=== PATIENT | female | born 1960 | race Caucasian/White ===

== ENCOUNTER 2018-12-13 00:11 | Emergency (ER) | payer BC ==
[2018-12-13 00:18] VITALS: RESP 20; TEMP 99.2
[2018-12-13] MEDS ORDERED: HYDROmorphone 1 MG/ML 1 ML SYRINGE IVP STA (00:55)
--- NOTE | 2018-12-13 01:54 | XR ---
EXAM: XR Right Foot Complete, 3 or More Views CLINICAL HISTORY: ITS.REASON XR Reason: Pain TECHNIQUE: Frontal, lateral and oblique views of the right foot. COMPARISON: No relevant prior studies available. FINDINGS: Bones/joints: Fibular fracture, better characterized on dedicated ankle radiographs. No evidence of acute foot fracture on this markedly limited single view exam. No dislocation. Soft tissues: No radiopaque foreign body. Soft tissue swelling along the ankle joint. IMPRESSION: 1. Fibular fracture, better characterized on dedicated ankle radiographs. 2. No evidence of acute foot fracture on this markedly limited single view exam.
--- NOTE | 2018-12-13 03:08 | XR ---
EXAM: XR Right Ankle Complete, 3 or More Views CLINICAL HISTORY: ITS.REASON XR Reason: Pain TECHNIQUE: Frontal, lateral and oblique views of the right ankle. COMPARISON: No relevant prior studies available. FINDINGS: Bones/joints: Mildly displaced acute fracture of the lateral malleolus. Widening of the medial ankle mortise up to 6 mm concerning for medial collateral ligament injury. Plantar calcaneal spur. Soft tissues: Soft tissue swelling along the bilateral ankle joint. IMPRESSION: 1. Mildly displaced acute fracture of the lateral malleolus. 2. Widening of the medial ankle mortise up to 6 mm concerning for medial collateral ligament injury.
[2018-12-13] MEDS ORDERED: KETOROLAC 30 MG/ML 1 ML VIAL IVP STA (03:27)
[2018-12-13] MEDS ORDERED: HYDROmorphone 0.5 MG/0.5 ML SYRINGE IVP STA (03:27)
[2018-12-13 03:42] VITALS: BP 116/62; PULSE 75
--- NOTE | 2018-12-13 03:50 | ED ---
Lower Extremity Injury HPI - General Chief Complaint: Extremity Injury, Lower Stated Complaint: Fall R Ankle Injury Time Seen by Provider: 12/13/18 00:24 Source: patient Mode of arrival: EMS Limitations: no limitations - History of Present Illness Initial Comments: 58 year-old female patient presents to the emergency department today for evaluation of right ankle pain after a slip and fall accident. Patient states that she slipped and fell down the steps of her porch. States that she had significant and instant pain to the right ankle. Patient denies hitting her head or losing consciousness during the fall. Patient did have to call ambulance to pick her up she is unable to ambulate. Patient is also reporting right hip pain. She denies any neck or back pain with this. Denies any current headache, blurred vision, double vision, nausea, or vomiting. Denies any dizziness. Denies any previous injury to the ankle. Patient denies any chest pain, shortness of breath, abdominal pain, or difficulties with bowel movements or urination. - Related Data Previous Rx's Medication Instructions Recorded Hydrocodone/Acetaminophen [[place] 1 tab PO Q4HR PRN 3 Days #18 tab 12/13/18 5-325] Ibuprofen [Motrin] 600 mg PO Q8HR PRN #30 tab 12/13/18 Allergies Allergy/AdvReac Type Severity Reaction Status Date / Time No Known Allergies Allergy Verified 04/06/14 21:50 Review of Systems ROS Statement: Those systems with pertinent positive or pertinent negative responses have been documented in the HPI. ROS Other: All systems not noted in ROS Statement are negative. Past Medical History Past Medical History: No Reported History Additional Past Medical History / Comment(s): shingles History of Any Multi-Drug Resistant Organisms: None Reported Past Surgical History: Section Past Psychological History: Anxiety, Depression Smoking Status: Former smoker Past Alcohol Use History: Occasional Past Drug Use History: None Reported General Exam Limitations: no limitations General appearance: alert, in no apparent distress, other (Physical well- developed, well-nourished adult female patient in mild distress related to pain. Vital signs upon presentation are temperature 99.2F, pulse 79, respirations 20, blood pressure 134/72, pulse ox 98% on room air.) Eye exam: Present: normal appearance, PERRL, EOMI. Absent: scleral icterus, conjunctival injection, periorbital swelling ENT exam: Present: normal exam, normal oropharynx, mucous membranes moist Respiratory exam: Present: normal lung sounds bilaterally. Absent: respiratory distress, wheezes, rales, rhonchi, stridor Cardiovascular Exam: Present: regular rate, normal rhythm, normal heart sounds. Absent: systolic murmur, diastolic murmur, rubs, gallop, clicks Extremities exam: Present: tenderness (Tenderness over the medial lateral malleolus), normal capillary refill, other (Patient's significant soft tissue swelling surrounding the right ankle. Skin is pink, warm, dry. Cap refills less than 3 seconds. Pedal and posttibial pulses 2+ and equal bilaterally.). Absent: normal inspection, full ROM (Decreased range of motion to the right ankle), pedal edema, joint swelling, calf tenderness Neurological exam: Present: alert, oriented X3, CN II-XII intact Psychiatric exam: Present: normal affect, normal mood Skin exam: Present: warm, dry, intact, normal color. Absent: rash Course Vital Signs 12/13/18 12/13/18 00:13 03:41 Temperature 99.2 F Pulse Rate 79 75 Respiratory 20 20 Rate Blood Pressure 134/72 116/62 O2 Sat by Pulse 98 93 L Oximetry Medical Decision Making - Medical Decision Making 58 year-old female patient presented to the emergency department today for evaluation of right ankle and right hip pain after experiencing a slip and fall accident reports this evening. Physical examination did reveal swelling surrounding the right medial lateral malleolus. Patient neurovascular status was intact with good pulses, skin color, temperature, and cap refill. Patient had no knee or proximal tib-fib tenderness. X-rays of the right ankle did reveal a lateral malleolus fracture with widening of the ankle mortise up to 6 mm indicating possible medial collateral ligament injury. X-ray of the right hip and pelvis was negative for any evidence of acute osseous abnormalities. Did review x-rays with my attending physician Dr. Mullins, I did apply an ankle stirrup and posterior splint with generous padding around the ankle. Patient was given pain medication and prescriptions for home pain meds. Shows a given prescription for crutches which is instructed to follow-up with the authorization specialist for recheck as soon as possible. Return parameters were discussed in detail. She verbalizes understanding and agrees with this plan. - Radiology Data Radiology results: report reviewed, image reviewed Three-view x-ray of the right ankle are obtained. Report was reviewed in its entirety. Impression by Dr. Vasques shows mildly displaced acute fracture of the lateral malleolus. Widening of the medial ankle mortise up to 6 mm concerning for medial collateral ligament injury. 3 views of the right foot are obtained. Report is reviewed in its entirety. Impression by Dr. Vasques shows fibular fracture, better characterize and dedicated ankle radiographs. No evidence of acute fracture and is markedly limited single view exam. 3 views of the right hip and pelvis are obtained. Report was reviewed in its entirety. Impression by Dr. Vasques shows normal pelvis x-rays. Disposition Clinical Impression: Fracture of right ankle, lateral malleolus Disposition: HOME SELF-CARE Condition: Good Instructions (If sedation given, give patient instructions): Ankle Fracture (ED), Splint Care (ED) Additional Instructions: Keep leg elevated, keep ice over the splint. Remain nonweightbearing to the right ankle until follow-up with orthopedics. Follow-up with orthopedics for recheck as soon as possible. Return to the emergency department immediately for any new, worsening, or concerning symptoms. Prescriptions: Ibuprofen [Motrin] 600 mg PO Q8HR PRN #30 tab PRN Reason: Pain Hydrocodone/Acetaminophen [[place] 5-325] 1 tab PO Q4HR PRN 3 Days #18 tab PRN Reason: Pain Is patient prescribed a controlled substance at d/c from ED?: Yes When asked, does pt state using other controlled substances?: No If prescribed controlled substance>3 days was MAPS reviewed?: Prescribed <3 Days If opioid is for acute pain is fill amount 7 days or less?: Yes If Rx opioid, was Start Talking consent form obtained?: Yes Referrals: Antonio Dinero MD [STAFF PHYSICIAN] - 1-2 days Time of Disposition: 04:36
--- NOTE | 2018-12-13 04:31 | XR ---
EXAM: XR Pelvis Complete, 3 or More Views CLINICAL HISTORY: ITS.REASON XR Reason: Pain TECHNIQUE: Frontal and lateral or oblique views of the pelvis. COMPARISON: No relevant prior studies available. FINDINGS: Bones/joints: Unremarkable. No acute fracture. No dislocation. Soft tissues: Unremarkable. IMPRESSION: Normal pelvis x-rays.
[2018-12-13] MEDS ORDERED: ACET/COD 300 MG/30 MG STARTER PACK 6 TAB BTL PO STA (04:33)
[2018-12-13] MEDS ORDERED: IBUPROFEN 600 MG STARTER PACK 4 TAB BTL PO STA (04:34)
== END 2018-12-13 05:24 | disposition home or self-care (01) ==
LOC: EC 00:11
DX: S82.61XA Displaced fracture of lateral malleolus of right fibula, initial encounter for closed fracture (principal); M25.551 Pain in right hip; Z87.891 Personal history of nicotine dependence; W10.9XXA Fall (on) (from) unspecified stairs and steps, initial encounter; Y93.89 Activity, other specified; Y92.008 Other place in unspecified non-institutional (private) residence as the place of occurrence of the external cause
CPT/HCPCS: 73502; 73610; 73630; 99284; 29515; 96374; 96375; 96376; J1885; J1170 ×2